=== PATIENT | female | born 1965 | race Caucasian/White ===

== ENCOUNTER 2019-07-29 04:38 | Emergency (ER) | payer BC ==
[~2019-07-29] VITALS: Ht 170.2 cm; Wt 90.7 kg
[2019-07-29 05:24] LABS: ABSOLUTE NEUTROPHILS 4.7 thou/uL (1.4-8.2); BASOPHILS 0.6 % (0.0-2.0); EOSINOPHILS 2.2 % (0.0-3.0); HEMATOCRIT 40.3 % (37.0-47.0); HEMOGLOBIN 13.5 gm/dL (12.0-15.0); LYMPHOCYTES 35.3 % (24.0-44.0); MCH 29.9 pg (26.0-34.0); MCHC 33.4 g/dL (28.0-37.0); MCV 89.4 fL (80.0-100.0); MONOCYTES 5.8 % (1.0-8.0); PLATELET COUNT 266 thou/uL (150-400); POLYS 56.1 % (36.0-66.0); RDW 12.9 % (10.5-14.5); WBC 8.5 thou/uL (4.0-11.0)
[2019-07-29 05:31] LABS: ANION GAP 13 mmol/L (7-16); BUN 12 mg/dL (7-18); CALCIUM 9.4 mg/dL (8.5-10.1); CHLORIDE 101 mmol/L (98-107); CO2 24 mmol/L (21-32); CREATININE 1.2 mg/dL (0.6-1.0); GLUCOSE 165 mg/dL (74-106); POTASSIUM 3.4 mmol/L (3.5-5.1); SODIUM 138 mmol/L (136-145)
[2019-07-29] MEDS ORDERED: LEVO-T100 MCG PO (05:39)
[2019-07-29] MEDS ORDERED: FISH OIL 1,0001 EAC9 PO (05:40)
[2019-07-29] MEDS ORDERED: VICTOZA0.6 MG/0.1 SUBQ (05:40)
[2019-07-29] MEDS ORDERED: VIBRANT PO (05:40)
[2019-07-29 05:41] LABS: LIPASE 335 U/L (73-393); SGOT 26 U/L (15-37); SGPT 44 U/L (30-65); TOTAL BILIRUBIN 0.5 mg/dL (<0.1-1.0); TOTAL PROTEIN 8.5 g/dL (6.4-8.2); TROPONIN-I <0.06 ng/mL (<0.06)
[2019-07-29] MEDS ORDERED: RED YEAST RICE600 MG PO (05:41)
[2019-07-29] MEDS ORDERED: FLOMAX0.4 MG PO (06:11)
[2019-07-29] MEDS ORDERED: NORCO 5-325 TA1 EAC1 PO (06:11)
[2019-07-29] MEDS ORDERED: ONDANSETRON ODT8 MG PO (06:11)
[2019-07-29] MEDS ORDERED: TORADOL 10 MG T10 MG PO (06:11)
[2019-07-29 07:13] VITALS: BP 117/62
--- NOTE | 2019-07-31 07:46 | EKG ---
[place] [address] [address] [facility] [place] [address] ELECTROCARDIOGRAM REPORT Name: JUDY PURVISIA CAPRI Room #: DEP [facility]#: [id number] Admission: 07/29/19 Attend Phys: Discharge: 07/29/19 Date of : 65 Report #: [id number] THIS REPORT FOR: //name// [facility] ED Test Date: 2019-07-29 Test Time: 05:50:42 Pat Name: SHERIDAN PURVIS Department: Room: Gender: F Enterer: : 1965 Requested By: Valentin Smart Order Number: [id number] MD: Nithin Espinoza Measurements Intervals [place] Rate: 89 P: 49 AK: 182 QRS: 4 QRSD: 102 T: 54 QT: 384 QTc: 468 Interpretive Statements Sinus rhythm Nonspecific ST segment abnormality No previous ECG available for comparison Electronically Signed On 07-31-2019 7:46:25 DISPATCHER SERVICE by Nithin Espinoza [email or web address] <ELECTRONICALLY SIGNED> By: Nithin Espinoza MD, [facility] 07/31/19 0746 0550 0550 Nithin Espinoza MD, FACC /EPI
== END 2019-07-29 07:00 | disposition home or self-care (01) ==
LOC: ER 04:38
PROVIDERS: Emergency Medicine
DX: N20.0 Calculus of kidney (principal); R11.2 Nausea with vomiting, unspecified; E11.9 Type 2 diabetes mellitus without complications; E66.9 Obesity, unspecified; Z68.31 Body mass index [BMI] 31.0-31.9, adult; Z87.442 Personal history of urinary calculi